=== PATIENT | male | born 1970 | race Caucasian/White ===

== ENCOUNTER 2016-05-13 18:09 | Emergency (ER) | payer MEDICAID, OTHER ==
[~2016-05-13] VITALS: Ht 170.2 cm; Wt 69.9 kg
[~2016-05-13 18:09] MED LIST: CETI10 PO; RANI1TAB5 PO; Z.0.NO CURRENT MEDS
[2016-05-13 18:48] VITALS: BP 135/83; PULSE 60; RESP 16; TEMP 98.2; O2SAT 99
--- NOTE | 2016-05-13 19:09 | PD ---
HPI . Right lower quadrant pain Chief Complaint: Abdominal Pain Time Seen by Provider: 18:53 Travel History International Travel<30 days: No Contact w/Intl Traveler<30days: No Traveled to known affect area: No History of Present Illness HPI Patient presents with a chief complaint of right lower quadrant pain. He had the onset of symptoms about 4 days ago. He states that his symptoms have waxed and waned but have become acutely worse since about noon today. The pain radiates into the right testicle. He reports urgency of urination. Otherwise, no urinary tract symptoms. He states that his appetite has been good. He has not had any fever. He has had no associated nausea, vomiting or diarrhea. He has not noted any exacerbating or relieving factors. He denies any previous similar history. He reports an old back injury with some chronic mild low back pain. He has not noticed any right flank pain. [id number]: Right lower quadrant and right testicle SEVERITY:8/10 DURATION: 4 days TIMING: Acutely worse since noon today MODIFYING FACTORS: No exacerbating or relieving factors ASSOCIATED SYMPTOMS: Urinary frequency. No other associated symptoms. PFSH Past Medical History Cardiovascular Problems: No Diminished Hearing: No Endocrine: No Genitourinary: No Immune Disorder: No Musculoskeletal: No Neurologic: No Psychiatric: No Reproductive: No Respiratory: No Sickle Cell Disease: No Past Surgical History Oral Surgery: Yes (sinus surgery) Other Surgery: Yes (SINUS SURGERY) Social History Alcohol Use: No Tobacco Use: No Substance Use: No Allergies-Medications (Allergen,Severity, Reaction): Coded Allergies: Sulfa (Verified Allergy, Intermediate, Hives, 05/13/16) Reported Meds & Prescriptions Reported Meds & Active Scripts Active Zofran Odt (Ondansetron Odt) 8 Mg Tab 8 Mg SL Q8H PRN Flomax (Tamsulosin HCl) 0.4 Mg Cap 0.4 Mg PO HS Percocet (Oxycodone-Acetaminophen) 5-325 mg Tab 1 Tab PO Q4H PRN Review of Systems Except as stated in HPI: all other systems reviewed are Neg General / Constitutional: No: Fever, Chills Gastrointestinal: Positive: Abdominal Pain, No: Nausea, Vomiting, Diarrhea, Loss of Appetite Genitourinary: Positive: Frequency, Other (right testicular pain), No: Dysuria , Hematuria, Flank Pain, Discharge Physical Exam Narrative GENERAL: Healthy-appearing young man in no acute distress. SKIN: Warm and dry. HEAD: Atraumatic. Normocephalic. EYES: Pupils equal and round. ENT: No nasal bleeding or discharge. Mucous membranes pink and moist. NECK: Trachea midline. Neck is supple. CARDIOVASCULAR: Regular rate and rhythm. Heart sounds are normal. RESPIRATORY: No accessory muscle use. Lungs are clear with full air movement throughout. GASTROINTESTINAL: Abdomen soft. Minimal tenderness to palpation in the right lower quadrant. Nondistended. Bowel sounds are present. : Normal circumcised male. He testicular swelling. No tenderness to palpation of the epididymis or cord. No inguinal hernia palpated. MUSCULOSKELETAL: No obvious deformities. No edema. NEUROLOGICAL: Awake and alert. No obvious cranial nerve deficits. Motor grossly within normal limits. Normal speech. PSYCHIATRIC: Appropriate mood and affect; insight and judgment normal. Data Data Last Documented VS Vital Signs Date Time Temp Pulse Resp B/P Pulse Ox O2 Delivery O2 Flow Rate FiO2 05/13/16 19:46 74 16 144/84 99 Room Air 05/13/16 18:48 98.2 Orders Basic Metabolic Panel (Bmp) (05/13/16 19:01) Complete Blood Count With Diff (05/13/16 19:01) Urinalysis - C+S If Indicated (05/13/16 19:01) Ct Abd/Pel W/O Iv Contrast (05/13/16 19:01) Ketorolac Inj (Toradol Inj) (05/13/16 19:15) Ondansetron Inj (Zofran Inj) (05/13/16 19:15) Sodium Chloride 0.9% Flush (Ns Flush) (05/13/16 19:15) Hydromorphone Pf Inj (Dilaudid Pf Inj) (05/13/16 19:15) Hydromorphone Pf Inj (Dilaudid Pf Inj) (05/13/16 19:45) Us Testicles W Doppler (05/13/16 20:18) Labs Laboratory Tests Test 05/13/16 19:30 White Blood Count 15.2 TH/MM3 Red Blood Count 4.95 MIL/MM3 Hemoglobin 15.4 GM/DL Hematocrit 45.3 % Mean Corpuscular Volume 91.7 FL Mean Corpuscular Hemoglobin 31.1 PG Mean Corpuscular Hemoglobin 33.9 % Concent Red Cell Distribution Width 12.5 % Platelet Count 274 TH/MM3 Mean Platelet Volume 8.8 FL Neutrophils (%) (Auto) 86.9 % Lymphocytes (%) (Auto) 8.6 % Monocytes (%) (Auto) 4.3 % Eosinophils (%) (Auto) 0.1 % Basophils (%) (Auto) 0.1 % Neutrophils # (Auto) 13.2 TH/MM3 Lymphocytes # (Auto) 1.3 TH/MM3 Monocytes # (Auto) 0.7 TH/MM3 Eosinophils # (Auto) 0.0 TH/MM3 Basophils # (Auto) 0.0 TH/MM3 CBC Comment DIFF FINAL Differential Comment Sodium Level 139 MEQ/L Potassium Level 3.7 MEQ/L Chloride Level 103 MEQ/L Carbon Dioxide Level 24.8 MEQ/L Anion Gap 11 MEQ/L Blood Urea Nitrogen 17 MG/DL Random Glucose 121 MG/DL Calcium Level 9.1 MG/DL MDM Medical Decision Making Medical Screen Exam Complete: Yes Emergency Medical Condition: Yes Differential Diagnosis Differential diagnosis of abdominal pain includes but is not limited to gastritis, pancreatitis, hepatitis, gastroenteritis, gallbladder disease, constipation, urinary retention, UTI, peptic ulcer disease, diverticulitis or appendicitis Narrative Course Patient presents with right lower quadrant pain radiating into the right testicle. My #1 differential diagnosis at this time is kidney colic. Appendicitis and testicular torsion need to be ruled out. Epididymitis is also a possibility although unlikely given his exam. Last Impressions Abdomen/Pelvis CT 05/13/16 1901 Signed Impressions: Service Date/Time: Friday, May 13, 2016 19:13 - CONCLUSION: 1. Mild obstructive uropathy secondary to right UVJ calculus measuring 5 mm. 2. Punctate nonobstructing bilateral renal calculi. Joe Lombardo MD I have tried to discontinue the ultrasound. However, it is already in progress. Diagnosis Primary Impression: Renal colic on right side Additional Impression: Right ureteral stone Referrals: Nate Wilson MD Patient Instructions: General Instructions, Kidney Stones (DC), Narcotic given in the ED Med/Other Pt SpecificInfo: Prescription(s) given Scripts Ondansetron Odt (Zofran Odt)8 Mg Tab8 Mg SL Q8H PRN (NAUSEA OR VOMITING) #10 TAB Ref 0 Prov:Marika Hughes MD 05/13/16 Tamsulosin (Flomax)0.4 Mg Cap0.4 Mg PO HS #10 CAP Ref 0 Prov:Marika Hughes MD 05/13/16 Oxycodone-Acetaminophen (Percocet)5-325 mg Tab1 Tab PO Q4H PRN (PAIN) #15 TAB Ref 0 Prov:Marika Hughes MD 05/13/16 Disposition: 01 DISCHARGE HOME Condition: Stable Marika Hughes MD May 13, 2016 19:09
[2016-05-13] MEDS ORDERED: SODIUM CHLORIDE 0.9% FLUSH 5 ML FLUSH IVF PRN (19:15)
[2016-05-13] MEDS ORDERED: ONDANSETRON HCL 4 MG/2 ML VIAL IVP ONE (19:15)
[2016-05-13] MEDS ORDERED: HYDROmorphone HCL PF 2 MG/ML VIAL IM ONE (19:15)
[2016-05-13] MEDS ORDERED: KETOROLAC TROMETHAMINE 30 MG/ML (IVP) VIAL IVP ONE (19:15)
[2016-05-13] MEDS ORDERED: HYDROmorphone HCL PF 2 MG/ML VIAL IV PUSH ONE (19:45)
[2016-05-13 19:46] VITALS: BP 144/84; PULSE 74; RESP 16; O2SAT 99
--- NOTE | 2016-05-13 19:49 | RADHPO ---
EXAM DATE/TIME: 05/13/2016 19:13 [facility] COMPARISON: No previous studies available for comparison. INDICATIONS : Right lower quadrant pain for four days. ORAL CONTRAST: No oral contrast ingested. RADIATION DOSE: 9.7 CTDIvol (mGy) MEDICAL HISTORY : None SURGICAL HISTORY : None. ENCOUNTER: Initial ACUITY: 4 - 6 days PAIN SCALE: 8/10 LOCATION: Right lower quadrant TECHNIQUE: Volumetric scanning of the abdomen and pelvis was performed. Using automated exposure control and ad justment of the mA and/or kV according to patient size, radiation dose was kept as low as reasonably achievable to obtain optimal diagnostic quality images. FINDINGS: LOWER LUNGS: The visualized lower lungs are clear. LIVER: Homogeneous density without lesion. There is no dilation of the biliary tree. No calcified gallston es. SPLEEN: Normal size without lesion. PANCREAS: Within normal limits. KIDNEYS: Normal in size and shape. There is no mass or hydronephrosis on the left. Mild right-sided hydroneph rosis and hydroureter leading to right UVJ calculus measuring 5 mm. Punctate bilateral no obstructing renal calculi measuring 2-3 mm. Retroaortic left renal vein. ADRENAL GLANDS: Within normal limits. VASCULAR: There is no aortic aneurysm. BOWEL/MESENTERY: The stomach, small bowel, and colon demonstrate no acute abnormality. There is no free intraperitone al air or fluid. ABDOMINAL WALL: Within normal limits. RETROPERITONEUM: There is no lymphadenopathy. BLADDER: No wall thickening or mass. REPRODUCTIVE: Within normal limits. INGUINAL: There is no lymphadenopathy or hernia. MUSCULOSKELETAL: Within normal limits for patient age. CONCLUSION: 1. Mild obstructive uropathy secondary to right UVJ calculus measuring 5 mm. 2. Punctate nonobstructing bilateral renal calculi. Joe Lombardo MD on May 13, 2016 at 19:46 Board Certified Radiologist. This report was verified electronically.
[2016-05-13 20:08] LABS: AUTOMATED NEUTROPHIL # 13.2 TH/MM3 (1.8-7.7); BASOPHIL % 0.1 % (0.0-2.0); EOSINOPHIL % 0.1 % (0.0-4.0); HEMATOCRIT 45.3 % (39.0-51.0); LYMPH % 8.6 % (9.0-44.0); LYMPHOCYTE # 1.3 TH/MM3 (1.0-4.8); MEAN CELL VOLUME 91.7 FL (80.0-100.0); MEAN CORPUSCULAR HEMOGLOBIN 31.1 PG (27.0-34.0); MEAN CORPUSCULAR HGB CONC 33.9 % (32.0-36.0); MONO % 4.3 % (0.0-8.0); NEUT % 86.9 % (16.0-70.0); PLATELET COUNT 274 TH/MM3 (150-450); RED BLOOD COUNT 4.95 MIL/MM3 (4.50-5.90); RED CELL DISTRIBUTION WIDTH 12.5 % (11.6-17.2); WHITE BLOOD COUNT 15.2 TH/MM3 (4.0-11.0)
[2016-05-13 20:14] LABS: POTASSIUM 3.7 MEQ/L (3.5-5.1)
[2016-05-13 20:15] LABS: HEMO FLAGS DIFF FINAL
[2016-05-13 20:17] LABS: BICARBONATE 24.8 MEQ/L (21.0-32.0)
[2016-05-13] MEDS ORDERED: ZOFR8TAB4 SL (20:17)
[2016-05-13] MEDS ORDERED: PERC5TAB12 PO (20:17)
[2016-05-13] MEDS ORDERED: TAMS5CAP PO (20:17)
[2016-05-13 20:27] LABS: BLOOD, URINE LARGE (NEG); GLUCOSE,URINE NEG (NEG); KETONE, URINE NEG (NEG); NITRITE,URINE NEG (NEG)
--- NOTE | 2016-05-13 20:32 | RADHPO ---
EXAM DATE/TIME: 05/13/2016 19:59 [facility] COMPARISON: No previous studies available for comparison. INDICATIONS : Right groin and testicle pain. MEDICAL HISTORY : Right groin and testicle pain. SURGICAL HISTORY : Tonsillectomy. Sinus surgery. ENCOUNTER: Initial ACUITY: 3 days PAIN SCORE: 3/10 LOCATION: Bilateral testicle. MEASUREMENTS: RIGHT TESTICLE: 4.4 x 4.3 x 2.7cm LEFT TESTICLE: 3.7 x 3.8 x 2.3cm FINDINGS: RIGHT TESTICLE: Homogeneous echotexture without intra or extratesticular mass. Blood flow is symmetric and within no rmal limits. No varicocele. A small hydrocele. There is a small cyst in the epididymis measuring 3 x 2 mm. LEFT TESTICLE: Homogeneous echotexture without intra or extratesticular mass. Blood flow is symmetric and within no rmal limits. No varicocele. There is a small hydrocele. Epididymis is within normal limits. SCROTUM: Within normal limits. CONCLUSION: 1. The testicles are intrinsically normal. 2. Small hydroceles and small cystic structure in the right epididymis most consistent with a spermat ocele. Michael Lilly MD on May 13, 2016 at 20:29 Board Certified Radiologist. This report was verified electronically.
[2016-05-13 20:38] VITALS: BP 138/64
[2016-05-13 20:45] LABS: URINE COLOR STRAW (YELLW/STRAW)
[2016-05-13 20:50] LABS: RBC, URINE 15-19 /hpf (0-3); SQUAMOUS EPITHELIAL CELL URINE 0-2 /hpf (0-5); WBC, URINE 0-2 /hpf (0-5)
[2016-05-13 20:51] LABS: COMMENT (UR) CULT NOT INDICATED; CULTURE IF INDICATED CULT NOT INDICATED
== END 2016-05-13 20:47 | disposition home or self-care (01) ==
LOC: PHED 18:09
DX: N23 Unspecified renal colic (principal); N20.1 Calculus of ureter; R39.15 Urgency of urination; N50.811 Right testicular pain
CPT/HCPCS: 74176; 76870; 80048; 81001; 85025; 93975; 96374; 96375; 99284; J1170; J1885; J2405